=== PATIENT | female | born 1945 | race Caucasian/White ===

== ENCOUNTER 2020-11-11 15:46 | Outpatient (CLI) ==
--- NOTE | 2020-11-11 16:33 | XRAY Report ---
PROCEDURE: Ankle 3 View RT INDICATIONS: SPRAIN OF LIGAMENT RIGHT ANKLE TECHNIQUE: 3 views of the ankle were acquired. COMPARISON: None FINDINGS: Bones: There is a mildly displaced fracture seen, which is seen above and at the level of the syndes mosis. The syndesmosis does not appear frankly widened. No significant widening of ankle mortise can be seen. The talar dome demonstrates an unremarkable appearance. Ankle mortise is normally aligned. No suspicious bony lesions. Chronic remodeling changes can be seen involving the distal fibular/lateral talar interface, which is likely reflective of a remote injury. On the lateral image, a metatarsal screw can be seen. Soft tissues: Mild soft tissue swelling is seen laterally. IMPRESSION: Mildly displaced distal fibular fracture. Reviewed by: Darien Wong MD on 11/11/2020 3:32 PM [place] Approved by: Darien Wong MD on 11/11/2020 3:32 PM [facility] Station ID: [id number]
== END 2020-11-11 15:47 | disposition home or self-care (01) ==
LOC: DI.S 15:46
PROVIDERS: ATTEND Emergency Medicine
DX: S93.491A Sprain of other ligament of right ankle, initial encounter (principal); S82.831A Other fracture of upper and lower end of right fibula, initial encounter for closed fracture

== ENCOUNTER 2020-11-23 14:09 | Outpatient (CLI) | payer MEDICARE, OTHER ==
[2020-11-23 20:02] LABS: BASOPHILS # (AUTO) 0.1 10^3/uL (0.0-0.1); BASOPHILS % (AUTO) 0.9 %; EOSINOPHILS # (AUTO) 0.2 10^3/uL (0.0-0.7); EOSINOPHILS % (AUTO) 3.2 %; LYMPHOCYTES # (AUTO) 1.4 10^3/uL (1.5-3.5); LYMPHOCYTES % (AUTO) 26.8 %; MEAN CORPUSCULAR HGB CONC 32.4 g/dL (32.0-36.0); MEAN CORPUSCULAR VOLUME 104.9 fL (81.0-99.0); MEAN PLATELET VOLUME 9.4 fL (7.9-10.8); MONOCYTES # (AUTO) 0.5 10^3/uL (0.0-1.0); MONOCYTES % (AUTO) 8.8 %; NEUTROPHILS # (AUTO) 3.2 10^3/uL (1.5-6.6); NEUTROPHILS % (AUTO) 59.7 %; PLT - PLATELET COUNT 219 10^3/uL (130-450); RED BLOOD COUNT 3.24 10^6/uL (4.20-5.40); RED CELL DISTRIBUTION WIDTH 12.3 % (12.0-15.0); WHITE BLOOD COUNT 5.4 x10^3/uL (4.8-10.8)
[2020-11-23 20:04] LABS: ALBUMIN 4.2 g/dL (3.2-5.5); ALBUMIN/GLOBULIN RATIO 1.8 (1.0-2.2); BILIRUBIN,TOTAL 0.4 mg/dL (0.2-1.0); CALCIUM 8.8 mg/dL (8.5-10.3); CREATININE 1.3 mg/dL (0.4-1.0); TOTAL PROTEIN 6.6 g/dL (6.7-8.2)
== END 2020-11-23 23:59 | disposition home or self-care (01) ==
LOC: LAB.S 14:09
PROVIDERS: ATTEND Physician Assistant
DX: R82.2 Biliuria (principal); R80.9 Proteinuria, unspecified; N30.01 Acute cystitis with hematuria
CPT/HCPCS: 36415; 80053; 85025; 87086

== ENCOUNTER 2020-12-07 07:00 | Outpatient (CLI) | payer MEDICARE, OTHER ==
--- NOTE | 2020-12-07 21:11 | XRAY Report ---
PROCEDURE: Ankle 3 View RT INDICATIONS: RIGHT LATERAL MALLEOLUS Fx TECHNIQUE: 3 weight bearing views of the ankle were acquired. COMPARISON: 11/11/2020 FINDINGS: Bones: Stable alignment of oblique fracture involving the distal right fibula. Decreased conspicuity of fracture line compatible with progress towards fracture healing. Ankle mortise is normally aligned . Surgical screws are noted within the first metatarsal. No evidence for hardware loosening or failu re. No suspicious bony lesions. Soft tissues: No tibiotalar joint effusion. Achilles tendon appears normal. IMPRESSION: Stable alignment of healing distal right fibular fracture. Reviewed by: Jose Juan Lo MD on 12/07/2020 9:10 PM PST Approved by: Jose Juan Lo MD on 12/07/2020 9:10 PM PST Station ID: [id number]
== END 2020-12-07 23:59 | disposition home or self-care (01) ==
LOC: DI.N 07:00
PROVIDERS: ATTEND Orthopaedic Surgery
DX: S82.64XA Nondisplaced fracture of lateral malleolus of right fibula, initial encounter for closed fracture (principal)

== ENCOUNTER 2021-01-30 17:23 | Outpatient (CLI) | payer MEDICARE, OTHER | END 2021-01-30 17:24 | disposition short-term general hospital (02) | LOC: EMS 17:23 | DX: R55 Syncope and collapse (principal) | CPT/HCPCS: A0425; A0429 ==

== ENCOUNTER 2021-02-19 | Outpatient (CLI) | payer MEDICARE, OTHER | END 2021-02-19 12:55 | disposition short-term general hospital (02) | CPT/HCPCS: A0425; A0429 ==

== ENCOUNTER 2021-03-15 11:42 | Outpatient (CLI) | payer MEDICARE, OTHER ==
[2021-03-15 15:25] LABS: ALBUMIN 4.6 g/dL (3.2-5.5); ALBUMIN/GLOBULIN RATIO 2.2 (1.0-2.2); BILIRUBIN,TOTAL 0.5 mg/dL (0.2-1.0); CALCIUM 8.7 mg/dL (8.5-10.3); CREATININE 1.5 mg/dL (0.4-1.0); POTASSIUM 4.3 mmol/L (3.5-5.0); TOTAL PROTEIN 6.7 g/dL (6.7-8.2)
== END 2021-03-15 11:43 | disposition home or self-care (01) ==
LOC: LAB.S 11:42
PROVIDERS: ATTEND Internal Medicine Cardiovascular Disease
DX: I27.20 Pulmonary hypertension, unspecified (principal); R06.09 Other forms of dyspnea; N18.9 Chronic kidney disease, unspecified
CPT/HCPCS: 36415; 80053

== ENCOUNTER 2021-04-04 11:35 | Outpatient (CLI) | payer MEDICARE, OTHER ==
[2021-04-04 15:13] LABS: BASOPHILS # (AUTO) 0.1 10^3/uL (0.0-0.1); BASOPHILS % (AUTO) 1.1 %; EOSINOPHILS # (AUTO) 0.1 10^3/uL (0.0-0.7); EOSINOPHILS % (AUTO) 2.7 %; HCT - HEMATOCRIT 36.9 % (37.0-47.0); HGB - HEMOGLOBIN 11.6 g/dL (12.0-16.0); LYMPHOCYTES # (AUTO) 1.7 10^3/uL (1.5-3.5); LYMPHOCYTES % (AUTO) 32.8 %; MEAN CORPUSCULAR HEMOGLOBIN 32.9 pg (27.0-31.0); MEAN CORPUSCULAR HGB CONC 31.4 g/dL (32.0-36.0); MEAN CORPUSCULAR VOLUME 104.5 fL (81.0-99.0); MONOCYTES # (AUTO) 0.3 10^3/uL (0.0-1.0); MONOCYTES % (AUTO) 6.3 %; NEUTROPHILS % (AUTO) 56.7 %; PLT - PLATELET COUNT 177 10^3/uL (130-450); RED BLOOD COUNT 3.53 10^6/uL (4.20-5.40); RED CELL DISTRIBUTION WIDTH 12.9 % (12.0-15.0); WHITE BLOOD COUNT 5.2 x10^3/uL (4.8-10.8)
[2021-04-04 15:28] LABS: ALBUMIN 4.7 g/dL (3.2-5.5); BILIRUBIN,TOTAL 0.5 mg/dL (0.2-1.0); CREATININE 1.2 mg/dL (0.4-1.0); POTASSIUM 4.4 mmol/L (3.5-5.0); TOTAL PROTEIN 7.1 g/dL (6.7-8.2)
[2021-04-04 15:43] LABS: THYROID STIMULATING HORMONE 1.51 uIU/mL (0.34-5.60)
== END 2021-04-04 11:36 | disposition home or self-care (01) ==
LOC: LAB.S 11:35
PROVIDERS: ATTEND Internal Medicine
DX: E87.1 Hypo-osmolality and hyponatremia (principal); Z12.11 Encounter for screening for malignant neoplasm of colon; R53.83 Other fatigue; N18.9 Chronic kidney disease, unspecified
CPT/HCPCS: 36415; 80053; 84443; 85025

== ENCOUNTER 2021-04-10 08:00 | Outpatient (CLI) | payer MEDICARE, OTHER ==
[2021-04-10 16:14] LABS: FECAL OCCULT BLOOD (FIT) NEGATIVE (NEGATIVE)
== END 2021-04-10 23:59 | disposition home or self-care (01) ==
LOC: LAB.R 08:00
PROVIDERS: ATTEND Internal Medicine
DX: Z12.11 Encounter for screening for malignant neoplasm of colon (principal)
CPT/HCPCS: 82274

== ENCOUNTER 2021-05-22 11:01 | Outpatient (CLI) | payer MEDICARE, OTHER ==
--- NOTE | 2021-05-30 11:58 | Mammography Report ---
UNILATERAL LEFT DIGITAL SCREENING MAMMOGRAM 3D/2D: 05/22/2021 CLINICAL: Routine screening. Personal history of right breast cancer. No prior exams were available for comparison. There are scattered fibroglandular elements in left br east. There is a possible 1.4 cm oval asymmetry in the left breast middle depth lateral region seen on the craniocaudal view only. No other significant masses or calcifications are seen in the breast. IMPRESSION: INCOMPLETE: NEEDS ADDITIONAL IMAGING EVALUATION The possible 1.4 cm oval asymmetry in the left breast resembles fibroglandular tissue and is indeterm inate. Additional views with possible ultrasound are recommended. This exam was interpreted at Station ID: [id number]. NOTE: For mammograms, a report in lay terms will be sent to the patient. Approximately 15% of breast malignancies will not be visualized mammographically. In the management of a palpable breast mass, a negative mammogram must not discourage biopsy of a clinically suspicious lesion. Electronically Signed By: Jose Juan Malik M.D. aty/:05/29/2021 16:51:34 ACR BI-RADS Category 0: Incomplete 3340F PARENCHYMAL PATTERN: (A) - The breast(s) demonstrate(s) scattered fibroglandular densities. BI-RADS CATEGORY: (0) - 0 Mammo and [place] [id number] Immediate follow-up LATERALITY: (L)
== END 2021-05-22 11:02 | disposition home or self-care (01) ==
LOC: DI.S 11:01
PROVIDERS: ATTEND Internal Medicine
DX: Z12.31 Encounter for screening mammogram for malignant neoplasm of breast (principal); R92.8 Other abnormal and inconclusive findings on diagnostic imaging of breast; Z85.3 Personal history of malignant neoplasm of breast

== ENCOUNTER 2021-05-22 11:13 | Outpatient (CLI) | payer MEDICARE, OTHER ==
[2021-05-22 17:12] LABS: BASOPHILS # (AUTO) 0.1 10^3/uL (0.0-0.1); EOSINOPHILS # (AUTO) 0.2 10^3/uL (0.0-0.7); EOSINOPHILS % (AUTO) 3.2 %; HCT - HEMATOCRIT 35.8 % (37.0-47.0); HGB - HEMOGLOBIN 11.6 g/dL (12.0-16.0); LYMPHOCYTES # (AUTO) 1.5 10^3/uL (1.5-3.5); LYMPHOCYTES % (AUTO) 30.4 %; MEAN CORPUSCULAR HEMOGLOBIN 32.8 pg (27.0-31.0); MEAN CORPUSCULAR HGB CONC 32.4 g/dL (32.0-36.0); MEAN CORPUSCULAR VOLUME 101.1 fL (81.0-99.0); MEAN PLATELET VOLUME 9.8 fL (7.9-10.8); MONOCYTES # (AUTO) 0.4 10^3/uL (0.0-1.0); MONOCYTES % (AUTO) 7.7 %; NEUTROPHILS # (AUTO) 2.8 10^3/uL (1.5-6.6); NEUTROPHILS % (AUTO) 57.3 %; PLT - PLATELET COUNT 225 10^3/uL (130-450); RED BLOOD COUNT 3.54 10^6/uL (4.20-5.40); RED CELL DISTRIBUTION WIDTH 12.9 % (12.0-15.0); WHITE BLOOD COUNT 4.9 x10^3/uL (4.8-10.8)
[2021-05-22 17:24] LABS: ALBUMIN 4.6 g/dL (3.2-5.5); ALBUMIN/GLOBULIN RATIO 1.8 (1.0-2.2); BILIRUBIN,TOTAL 0.7 mg/dL (0.2-1.0); CALCIUM 9.1 mg/dL (8.5-10.3); CREATININE 1.4 mg/dL (0.4-1.0); POTASSIUM 4.4 mmol/L (3.5-5.0); TOTAL PROTEIN 7.1 g/dL (6.7-8.2)
== END 2021-05-22 11:14 | disposition home or self-care (01) ==
LOC: LAB.S 11:13
PROVIDERS: ATTEND Internal Medicine
DX: I10 Essential (primary) hypertension (principal)
CPT/HCPCS: 36415; 80053; 85025

== ENCOUNTER 2021-06-28 10:54 | Outpatient (CLI) | payer MEDICARE, OTHER ==
--- NOTE | 2021-06-29 13:37 | Ultrasound Report ---
LIMITED ULTRASOUND OF LEFT BREAST: 06/28/2021 CLINICAL: Patient returns today to evaluate a focal asymmetry in the left breast. Comparison is made to exams dated: 06/28/2021 mammogram, [facility] [place] [facility], 09/27/2019 mammogram, 09/22/2018 mammogram, and 11/28/2016 mammogram - [facility]. Color flow and real-time ultrasound of the left breast 2 o'clock region were performed. Colon scale images of the real-time examination were reviewed. No significant abnormalities were seen sonographically in the left breast. Specifically, no finding to correspond to the patient's resolved screening mammographic abnormality. Incidental note made of a normal 0.5 cm intramammary lymph node. IMPRESSION: NEGATIVE There is no sonographic correlate to the patient's screening mammography abnormality and no evidence of malignancy. Return to annual mammogram screening schedule is recommended. Findings and recommendations were conveyed to the patient at time of exam. This exam was interpreted at Station ID: [id number]. Electronically Signed By: Leyda khanna/:06/28/2021 12:25:06 Ultrasound BI-RADS: 1 Negative BI-RADS CATEGORY: (1) - 1 Mammogram [id number] return to screening LATERALITY: (B)
--- NOTE | 2021-06-29 13:37 | Mammography Report ---
UNILATERAL LEFT DIGITAL DIAGNOSTIC MAMMOGRAM 3D/2D: 06/28/2021 CLINICAL: Patient returns today to evaluate an asymmetry in the left breast. Comparison is made to exams dated: 05/22/2021 mammogram - [facility], 09/27/2019 carloz mogram, 09/22/2018 mammogram, and 11/28/2016 mammogram - [facility]. There ar e scattered fibroglandular elements in left breast. There is a possible 1.4 cm oval asymmetry in the left breast middle depth lateral region seen on the craniocaudal view only. This is not seen in additional views. This is less prominent compared to sc reening. No other significant masses or calcifications are seen in the breast. IMPRESSION: INCOMPLETE: NEEDS ADDITIONAL IMAGING EVALUATION The possible 1.4 cm oval asymmetry in the left breast most likely is fibroglandular tissue but remain s indeterminate. An ultrasound is recommended. This was performed immediately following this exam. This exam was interpreted at Station ID: [id number]. NOTE: For mammograms, a report in lay terms will be sent to the patient. Approximately 15% of breast malignancies will not be visualized mammographically. In the management of a palpable breast mass, a negative mammogram must not discourage biopsy of a clinically suspicious lesion. Electronically Signed By: Leyda khanna/:06/28/2021 12:00:52 ACR BI-RADS Category 0: Incomplete 3340F PARENCHYMAL PATTERN: (A) - The breast(s) demonstrate(s) scattered fibroglandular densities. BI-RADS CATEGORY: (0) - 0 Ultrasound [id number] Immediate follow-up LATERALITY: (B)
== END 2021-06-28 10:55 | disposition home or self-care (01) ==
LOC: DI 10:54
PROVIDERS: ATTEND Internal Medicine
DX: R92.8 Other abnormal and inconclusive findings on diagnostic imaging of breast (principal)

== ENCOUNTER 2021-08-02 11:22 | Outpatient (CLI) | payer MEDICARE, OTHER ==
[2021-08-02 15:29] LABS: BASOPHILS % (AUTO) 0.9 %; EOSINOPHILS # (AUTO) 0.1 10^3/uL (0.0-0.7); HCT - HEMATOCRIT 33.4 % (37.0-47.0); HGB - HEMOGLOBIN 10.8 g/dL (12.0-16.0); LYMPHOCYTES # (AUTO) 1.4 10^3/uL (1.5-3.5); LYMPHOCYTES % (AUTO) 32.2 %; MEAN CORPUSCULAR HEMOGLOBIN 34.2 pg (27.0-31.0); MEAN CORPUSCULAR HGB CONC 32.3 g/dL (32.0-36.0); MEAN CORPUSCULAR VOLUME 105.7 fL (81.0-99.0); MEAN PLATELET VOLUME 10.8 fL (7.9-10.8); MONOCYTES # (AUTO) 0.3 10^3/uL (0.0-1.0); MONOCYTES % (AUTO) 6.5 %; NEUTROPHILS # (AUTO) 2.5 10^3/uL (1.5-6.6); NEUTROPHILS % (AUTO) 57.2 %; PLT - PLATELET COUNT 196 10^3/uL (130-450); RED BLOOD COUNT 3.16 10^6/uL (4.20-5.40); RED CELL DISTRIBUTION WIDTH 12.8 % (12.0-15.0); WHITE BLOOD COUNT 4.3 x10^3/uL (4.8-10.8)
[2021-08-02 15:39] LABS: ALBUMIN 4.5 g/dL (3.2-5.5); ALBUMIN/GLOBULIN RATIO 1.8 (1.0-2.2); BILIRUBIN,TOTAL 0.6 mg/dL (0.2-1.0); CALCIUM 9.1 mg/dL (8.5-10.3); CREATININE 1.3 mg/dL (0.4-1.0); POTASSIUM 4.3 mmol/L (3.5-5.0)
== END 2021-08-02 11:23 | disposition home or self-care (01) ==
LOC: LAB.S 11:22
PROVIDERS: ATTEND Internal Medicine
DX: I10 Essential (primary) hypertension (principal)
CPT/HCPCS: 36415; 80053; 85025

== ENCOUNTER 2021-09-03 11:00 | Outpatient (CLI) | payer MEDICARE, OTHER ==
--- NOTE | 2021-09-03 12:33 | XRAY Report ---
PROCEDURE: Lumbar Spine 2 View INDICATIONS: CERVICALGIA TECHNIQUE: 2 views of the lumbar spine were acquired. COMPARISON: None. FINDINGS: Bones: 5 [id number] vertebrae are present. There is moderate levoscoliosis of and lumbar spine centered at L3 level. Degenerative endplate changes and bilateral facet arthrosis throughout lumbar spine is seen more prominent at L3-4 and L4-5 levels.. No vertebral body compression fractures. No suspicious bony lesions. Soft tissues: Overlying bowel gas pattern is normal. No suspicious soft tissue calcifications. IMPRESSION: Scoliosis as above. Degenerative disc disease throughout lumbar spine. No acute compress ion fracture or significant spondylolisthesis. Reviewed by: Joaquín Teague MD on 09/03/2021 12:32 PM PDT Approved by: Joaquín Teague MD on 09/03/2021 12:32 PM PDT Station ID: [id number]
[2021-09-03 12:34] LABS: ALBUMIN 4.5 g/dL (3.2-5.5); ALBUMIN/GLOBULIN RATIO 2.1 (1.0-2.2); BILIRUBIN,TOTAL 0.6 mg/dL (0.2-1.0); CREATININE 1.4 mg/dL (0.4-1.0); POTASSIUM 4.4 mmol/L (3.5-5.0); TOTAL PROTEIN 6.6 g/dL (6.7-8.2)
--- NOTE | 2021-09-03 12:35 | XRAY Report ---
PROCEDURE: Cervical Spine w/Flex/Ext INDICATIONS: CERVICALGIA TECHNIQUE: 7 views of the cervical spine were acquired. COMPARISON: None. FINDINGS: Bones: No fractures or dislocations to the C7-T1 level. There is straightening of normal cervical l ordosis. Degenerative endplate changes and bilateral facet hypertrophic changes are noted at C5-6 and C6-7 levels. No suspicious bony lesions. Oblique views shows right-sided bony foraminal stenosis at C5-6 level. There is decreased range of motion between flexion and extension, with preserved cervica l spine alignment. Soft tissues: Prevertebral soft tissues are normal in thickness. IMPRESSION: 1. No cervical spine fracture or dislocation. 2. Degenerative disc disease throughout cervical spine more prominent at C5-6 and C6-7 levels with payne ggestion of right-sided bony foraminal stenosis at C5-6 level. 3. Decreased range of motion on flexion and extension views with preserved cervical spine alignment. Reviewed by: Joaquín Teague MD on 09/03/2021 12:34 PM PDT Approved by: Joaquín Teague MD on 09/03/2021 12:34 PM PDT Station ID: [id number]
--- NOTE | 2021-09-03 12:54 | XRAY Report ---
PROCEDURE: Thoracic Spine 2 View INDICATIONS: THORACIC PAIN TECHNIQUE: 2 views of the thoracic spine were acquired. COMPARISON: The CT chest 03/19/2021. FINDINGS: Bones: No acute fractures or dislocations. Mild dextroconvex curvature of the lower thoracic spine. No suspicious bony lesions. 12 pairs of ribs are noted, and appear intact where visualized. Degene rative changes are seen that are more prominent at the T10-11 and T12-L1 levels. Soft tissues: No paravertebral stripe thickening. A catheter fragment is seen projecting over the r ight internal jugular vein and superior vena cava, not significantly changed when compared to the CT from 03/19/2021. A cardiac pacemaker is seen with pulse generator in the left chest. A right subclavian artery stent is present. IMPRESSION: 1.No acute osseous abnormality. Mild dextroconvex curvature of the lower thoracic spine with associat ed degenerative changes. 2.Stable moderate length catheter fragment is seen projecting over the right internal jugular vein an d superior vena cava. Reviewed by: Reece Slaughter MD on 09/03/2021 12:52 PM PDT Approved by: Reece Slaughter MD on 09/03/2021 12:52 PM PDT Station ID: [id number]
== END 2021-09-03 11:01 | disposition home or self-care (01) ==
LOC: DI 11:00
PROVIDERS: ATTEND Internal Medicine
DX: Z95.828 Presence of other vascular implants and grafts (principal); Z95.0 Presence of cardiac pacemaker; M47.814 Spondylosis without myelopathy or radiculopathy, thoracic region; M47.812 Spondylosis without myelopathy or radiculopathy, cervical region; M50.322 Other cervical disc degeneration at C5-C6 level; M48.02 Spinal stenosis, cervical region; M41.9 Scoliosis, unspecified; M47.816 Spondylosis without myelopathy or radiculopathy, lumbar region; M51.36 Other intervertebral disc degeneration, lumbar region; N18.9 Chronic kidney disease, unspecified
CPT/HCPCS: 36415; 80053

== ENCOUNTER 2021-09-25 08:00 | Outpatient (CLI) | payer MEDICARE, OTHER | END 2021-09-25 23:59 | LOC: LAB 08:00 | PROVIDERS: ATTEND Physician Assistant Medical | DX: R30.0 Dysuria (principal); N39.0 Urinary tract infection, site not specified | CPT/HCPCS: 87086 ==

== ENCOUNTER 2021-10-07 12:14 | Outpatient (CLI) | payer MEDICARE, OTHER ==
[2021-10-07 18:10] LABS: BASOPHILS % (AUTO) 0.7 %; EOSINOPHILS # (AUTO) 0.2 10^3/uL (0.0-0.7); EOSINOPHILS % (AUTO) 3.3 %; HCT - HEMATOCRIT 34.7 % (37.0-47.0); HGB - HEMOGLOBIN 11.4 g/dL (12.0-16.0); LYMPHOCYTES % (AUTO) 34.3 %; MEAN CORPUSCULAR HEMOGLOBIN 33.8 pg (27.0-31.0); MEAN CORPUSCULAR HGB CONC 32.9 g/dL (32.0-36.0); MONOCYTES # (AUTO) 0.4 10^3/uL (0.0-1.0); MONOCYTES % (AUTO) 7.4 %; NEUTROPHILS # (AUTO) 3.1 10^3/uL (1.5-6.6); PLT - PLATELET COUNT 226 10^3/uL (130-450); RED BLOOD COUNT 3.37 10^6/uL (4.20-5.40); RED CELL DISTRIBUTION WIDTH 12.3 % (12.0-15.0); WHITE BLOOD COUNT 5.8 x10^3/uL (4.8-10.8)
== END 2021-10-07 12:15 | disposition home or self-care (01) ==
LOC: LAB.S 12:14
PROVIDERS: ATTEND Internal Medicine
DX: D64.9 Anemia, unspecified (principal)
CPT/HCPCS: 36415; 82607; 85025

== ENCOUNTER 2022-01-20 13:45 | Outpatient (CLI) | payer MEDICARE, OTHER | END 2022-01-20 23:59 | disposition home or self-care (01) | LOC: LAB 13:45 | PROVIDERS: ATTEND Physician Assistant | DX: N30.00 Acute cystitis without hematuria (principal) | CPT/HCPCS: 87077; 87086; 87181 ==

== ENCOUNTER 2022-08-16 10:52 | Outpatient (CLI) | payer MEDICARE, OTHER ==
[2022-08-16 15:33] LABS: BASOPHILS # (AUTO) 0.1 10^3/uL (0.0-0.1); BASOPHILS % (AUTO) 0.9 %; EOSINOPHILS # (AUTO) 0.2 10^3/uL (0.0-0.7); EOSINOPHILS % (AUTO) 3.5 %; HCT - HEMATOCRIT 37.2 % (37.0-47.0); HGB - HEMOGLOBIN 12.6 g/dL (12.0-16.0); LYMPHOCYTES # (AUTO) 1.8 10^3/uL (1.5-3.5); MEAN CORPUSCULAR HGB CONC 33.9 g/dL (32.0-36.0); MEAN CORPUSCULAR VOLUME 100.3 fL (81.0-99.0); MONOCYTES # (AUTO) 0.3 10^3/uL (0.0-1.0); MONOCYTES % (AUTO) 6.3 %; NEUTROPHILS % (AUTO) 55.9 %; PLT - PLATELET COUNT 189 10^3/uL (130-450); RED BLOOD COUNT 3.71 10^6/uL (4.20-5.40); RED CELL DISTRIBUTION WIDTH 12.6 % (12.0-15.0); WHITE BLOOD COUNT 5.4 x10^3/uL (4.8-10.8)
[2022-08-16 16:02] LABS: ALBUMIN 4.3 g/dL (3.2-5.5); ALBUMIN/GLOBULIN RATIO 1.9 (1.0-2.2); ALKALINE PHOSPHATASE 76 IU/L (42-121); ALT ALANINE AMINOTRANSFERASE 14 IU/L (10-60); AST ASPARTATE AMINOTRANSFERASE 23 IU/L (10-42); BILIRUBIN,TOTAL 0.4 mg/dL (0.2-1.0); BUN - BLOOD UREA NITROGEN 15 mg/dL (6-20); CARBON DIOXIDE - CO2 24 mmol/L (21-32); CHLORIDE 97 mmol/L (101-111); CHOL/HDL RATIO 2.6 (<4.4); CHOLESTEROL 202 mg/dL; CREATININE 1.1 mg/dL (0.4-1.0); GFR - MDRD 49 (>89); GLUCOSE 100 mg/dL (70-100); HDL CHOLESTEROL 79 mg/dL; LDL CHOLESTEROL,CALCULATED 111 mg/dL; LDL/HDL RATIO 1.4 (<4.4); POTASSIUM 4.5 mmol/L (3.5-5.0); SODIUM 130 mmol/L (135-145); TOTAL PROTEIN 6.6 g/dL (6.7-8.2); TRIGLYCERIDES 62 mg/dL; VLDL CHOLESTEROL 12 mg/dL
== END 2022-08-16 10:53 | disposition home or self-care (01) ==
LOC: LAB.S 10:52
PROVIDERS: ATTEND Internal Medicine Cardiovascular Disease
DX: I48.0 Paroxysmal atrial fibrillation (principal); E78.5 Hyperlipidemia, unspecified; R06.02 Shortness of breath
CPT/HCPCS: 36415; 80053; 80061; 83721; 83880; 84443; 85025

== ENCOUNTER 2022-11-26 10:00 | Outpatient (CLI) | payer MEDICARE, OTHER ==
[2022-11-26 14:26] LABS: BASOPHILS % (AUTO) 0.7 %; EOSINOPHILS # (AUTO) 0.2 10^3/uL (0.0-0.7); HCT - HEMATOCRIT 35.8 % (37.0-47.0); HGB - HEMOGLOBIN 11.4 g/dL (12.0-16.0); LYMPHOCYTES # (AUTO) 1.6 10^3/uL (1.5-3.5); LYMPHOCYTES % (AUTO) 27.4 %; MEAN CORPUSCULAR HEMOGLOBIN 32.8 pg (27.0-31.0); MEAN CORPUSCULAR HGB CONC 31.8 g/dL (32.0-36.0); MEAN CORPUSCULAR VOLUME 102.9 fL (81.0-99.0); MEAN PLATELET VOLUME 9.8 fL (7.9-10.8); MONOCYTES # (AUTO) 0.4 10^3/uL (0.0-1.0); MONOCYTES % (AUTO) 6.7 %; NEUTROPHILS # (AUTO) 3.5 10^3/uL (1.5-6.6); NEUTROPHILS % (AUTO) 60.8 %; PLT - PLATELET COUNT 189 10^3/uL (130-450); RED BLOOD COUNT 3.48 10^6/uL (4.20-5.40); RED CELL DISTRIBUTION WIDTH 12.2 % (12.0-15.0); WHITE BLOOD COUNT 5.7 x10^3/uL (4.8-10.8)
[2022-11-26 14:59] LABS: ALBUMIN 4.5 g/dL (3.2-5.5); BILIRUBIN,TOTAL 0.9 mg/dL (0.2-1.0); CALCIUM 8.9 mg/dL (8.5-10.3); CREATININE 1.2 mg/dL (0.4-1.0); POTASSIUM 4.4 mmol/L (3.5-5.0); TOTAL PROTEIN 6.7 g/dL (6.7-8.2)
[2022-11-29 07:10] LABS: D001-IGE D PTERONYSSINUS <0.10 kU/L (Class 0); D002-IGE D FARINAE <0.10 kU/L (Class 0); E001-IGE CAT DANDER <0.10 kU/L (Class 0); E005-IGE DOG DANDER <0.10 kU/L (Class 0); G006-IGE TIMOTHY GRASS <0.10 kU/L (Class 0); I006-IGE COCKROACH GERMAN <0.10 kU/L (Class 0); IMMUNOGLOBULIN E TOTAL 109 IU/mL (6-495); M001-IGE PENICILLIUM CHRYSOGEN <0.10 kU/L (Class 0); M002-IGE CLADOSPORIUM HERBARUM <0.10 kU/L (Class 0); M003-IGE ASPERGILLUS FUMIGATUS <0.10 kU/L (Class 0); M006-IGE ALTERNARIA ALTERNATA <0.10 kU/L (Class 0); T001-IGE MAPLE/BOX ELDER <0.10 kU/L (Class 0); T002-IGE ALDER GREY <0.10 kU/L (Class 0); T003-IGE COMMON SILVER BIRCH <0.10 kU/L (Class 0); T006-IGE CEDAR MOUNTAIN <0.10 kU/L (Class 0); T007-IGE OAK WHITE <0.10 kU/L (Class 0); T008-IGE ELM AMERICAN <0.10 kU/L (Class 0); T010-IGE WALNUT <0.10 kU/L (Class 0); T014-IGE COTTONWOOD <0.10 kU/L (Class 0); T015-IGE ASH WHITE <0.10 kU/L (Class 0); W001-IGE RAGWEED SHORT <0.10 kU/L (Class 0); W014-IGE PIGWEED COMMON <0.10 kU/L (Class 0); W018-IGE SHEEP SORREL <0.10 kU/L (Class 0); W020-IGE NETTLE <0.10 kU/L (Class 0)
== END 2022-11-26 10:01 | disposition home or self-care (01) ==
LOC: LAB.S 10:00
DX: Z13.29 Encounter for screening for other suspected endocrine disorder (principal); Z13.21 Encounter for screening for nutritional disorder; Z13.228 Encounter for screening for other metabolic disorders; Z13.0 Encounter for screening for diseases of the blood and blood-forming organs and certain disorders involving the immune mechanism; J30.9 Allergic rhinitis, unspecified
CPT/HCPCS: 36415; 80053; 82785; 85025; 86003

== ENCOUNTER 2022-12-06 19:06 | Outpatient (CLI) | payer MEDICARE, OTHER | END 2022-12-06 19:07 | disposition left against medical advice (07) | LOC: EMS 19:06 | DX: K22.2 Esophageal obstruction (principal) ==

== ENCOUNTER 2023-01-07 13:07 | Outpatient (CLI) | payer MEDICARE, OTHER ==
--- NOTE | 2023-01-08 10:46 | Mammography Report ---
UNILATERAL LEFT DIGITAL SCREENING MAMMOGRAM 3D/2D: 01/07/2023 CLINICAL: Routine screening. Family history of breast cancer. Personal history of right breast cancer . Comparison is made to exams dated: 06/28/2021 mammogram, [facility], 09/27/2019 mammogram, and 09/22/2018 mammogram - [facility]. There are scattered areas of fibroglandular density in the left breast (category b / 25%-50% glandula r tissue). No significant masses, calcifications, or other findings are seen in the breast. There has been no significant interval change. IMPRESSION: NEGATIVE There is no mammographic evidence of malignancy. A 1 year screening mammogram is recommended. This exam was interpreted at Station ID: [id number]. NOTE: For mammograms, a report in lay terms will be sent to the patient. Approximately 15% of breast malignancies will not be visualized mammographically. In the management of a palpable breast mass, a negative mammogram must not discourage biopsy of a clinically suspicious lesion. Electronically Signed By: Jose Juan marks/loyd:01/07/2023 16:30:29 letter sent: No_Letter ACR BI-RADS Category 1: Negative 3341F PARENCHYMAL PATTERN: (A) - The breast(s) demonstrate(s) scattered fibroglandular densities. BI-RADS CATEGORY: (1) - 1 RECOMMENDATION: (ANNUAL) - Recommend routine annual screening mammography. [id number] 1 year screening LATERALITY: (B)
== END 2023-01-07 13:08 | disposition home or self-care (01) ==
LOC: DI.S 13:07
PROVIDERS: ATTEND Nurse Practitioner
DX: Z12.31 Encounter for screening mammogram for malignant neoplasm of breast (principal); Z80.3 Family history of malignant neoplasm of breast; Z85.3 Personal history of malignant neoplasm of breast

== ENCOUNTER 2023-02-14 10:39 | Outpatient (CLI) | payer MEDICARE, OTHER ==
--- NOTE | 2023-02-14 11:54 | DEXA Report ---
PROCEDURE: Dexa Spine and/or Hip INDICATIONS: POSTMENOPAUSAL TECHNIQUE: Dual energy x-ray absorptiometry (DXA) was performed on a [employer] System. Regions measur ed are the AP Spine, femoral neck, and if needed forearm. COMPARISON: None. FINDINGS: Lumbar Spine: Bone Mineral Density 1.24 g/cm/cm,T score 0.5, there is leftward spinal curvature. Left Femoral Neck: Bone Mineral Density 0.8 g/cm/cm, T score -1.7, Left Hip: Bone Mineral Density 0.8 g/cm/cm,T score -1.7, (T score greater or equal to -1.0: NORMAL) (T score from -1.1 to -2.4: OSTEOPENIA) (T score less than or equal to -2.5 to: OSTEOPOROSIS) Impression: Elevated fracture risk due to osteopenia of the left femoral neck and hip. Patients with diagnosis of osteoporosis or osteopenia should have regular bone mineral density assess ment. For those eligible for Medicare, routine testing is allowed once every 2 years. Testing frequ ency can be increased for patients who have rapidly progressing disease or for those who are receivin g medical therapy to restore bone mass. Reviewed by: Tan Hoyt MD on 02/14/2023 11:53 AM PDT Approved by: Tan Hoyt MD on 02/14/2023 11:53 AM PDT Station ID: [id number]
== END 2023-02-14 10:40 | disposition home or self-care (01) ==
LOC: DI 10:39
PROVIDERS: ATTEND Nurse Practitioner
DX: Z78.0 Asymptomatic menopausal state (principal); M85.88 Other specified disorders of bone density and structure, other site

== ENCOUNTER 2023-04-07 10:50 | Outpatient (CLI) | payer MEDICARE, OTHER | END 2023-04-07 10:51 | disposition short-term general hospital (02) | LOC: EMS 10:50 | DX: R07.9 Chest pain, unspecified (principal); R06.00 Dyspnea, unspecified | CPT/HCPCS: A0425; A0427 ==

== ENCOUNTER 2023-07-17 10:30 | Outpatient (CLI) | payer MEDICARE, OTHER ==
[2023-07-17 14:19] LABS: BILIRUBIN,URINE NEGATIVE (NEGATIVE); GLUCOSE, URINE (UA) NEGATIVE (NEGATIVE); KETONES,URINE (UA) NEGATIVE (NEGATIVE); LEUKOCYTE ESTERASE, URINE NEGATIVE (NEGATIVE); NITRITE,URINE NEGATIVE (NEGATIVE); OCCULT BLOOD,URINE NEGATIVE (NEGATIVE); PROTEIN,URINE NEGATIVE (NEGATIVE); UROBILINOGEN,URINE 0.2 (NORMAL) E.U./dL (NORMAL)
[2023-07-17 14:29] LABS: CLARITY,URINE CLEAR (CLEAR)
[2023-07-17 14:38] LABS: BACTERIA,URINE Few /HPF (None Seen); RBC,URINE 0-5 /HPF (0-5); SQUAMOUS EPITHELIAL CELL,UR FEW Squamous (<= Few)
== END 2023-07-17 23:59 | disposition home or self-care (01) ==
LOC: LAB.S 10:30
PROVIDERS: ATTEND Emergency Medicine
DX: R30.0 Dysuria (principal)
CPT/HCPCS: 81001; 87086

== ENCOUNTER 2023-12-12 11:27 | Outpatient (CLI) | payer MEDICARE, OTHER ==
[2023-12-12 11:36] LABS: BILIRUBIN,URINE NEGATIVE (NEGATIVE); GLUCOSE, URINE (UA) NEGATIVE (NEGATIVE); KETONES,URINE (UA) NEGATIVE (NEGATIVE); LEUKOCYTE ESTERASE, URINE TRACE (NEGATIVE); NITRITE,URINE NEGATIVE (NEGATIVE); OCCULT BLOOD,URINE NEGATIVE (NEGATIVE); PH,URINE 8.5 PH (5.0-7.5); PROTEIN,URINE TRACE mg/dL (NEGATIVE); UROBILINOGEN,URINE 0.2 (NORMAL) E.U./dL (NORMAL)
[2023-12-12 11:37] LABS: CLARITY,URINE CLEAR (CLEAR)
[2023-12-12 11:45] LABS: BACTERIA,URINE Moderate /HPF (None Seen); RBC,URINE 0-5 /HPF (0-5); SQUAMOUS EPITHELIAL CELL,UR FEW Squamous (<= Few)
== END 2023-12-12 11:28 | disposition home or self-care (01) ==
LOC: LAB 11:27
PROVIDERS: ATTEND Nurse Practitioner
DX: R30.0 Dysuria (principal)
CPT/HCPCS: 81001; 87086

== ENCOUNTER 2024-04-15 14:30 | Outpatient (CLI) | payer MEDICARE, OTHER ==
[2024-04-15 19:57] LABS: BILIRUBIN,URINE NEGATIVE (NEGATIVE); GLUCOSE, URINE (UA) NEGATIVE (NEGATIVE); KETONES,URINE (UA) TRACE mg/dL (NEGATIVE); LEUKOCYTE ESTERASE, URINE NEGATIVE (NEGATIVE); NITRITE,URINE NEGATIVE (NEGATIVE); OCCULT BLOOD,URINE NEGATIVE (NEGATIVE); PROTEIN,URINE NEGATIVE (NEGATIVE); UROBILINOGEN,URINE 0.2 (NORMAL) E.U./dL (NORMAL)
[2024-04-15 20:14] LABS: CLARITY,URINE CLEAR (CLEAR)
[2024-04-15 20:16] LABS: BACTERIA,URINE Rare /HPF (None Seen); RBC,URINE None Seen /HPF (0-5); SQUAMOUS EPITHELIAL CELL,UR RARE Squamous (<= Few); WBC,URINE 0-3 /HPF (0-5)
== END 2024-04-15 23:59 | disposition home or self-care (01) ==
LOC: LAB.S 14:30
PROVIDERS: ATTEND Registered Nurse
DX: R30.0 Dysuria (principal)
CPT/HCPCS: 81001; 87086